=== PATIENT | male | born 1980 | race Caucasian/White ===

== ENCOUNTER → 2016-11-07 | Outpatient (CLI) | payer OTHER ==
[2016-11-07 13:56] LABS: HEMOGLOBIN 14.4 gm/dl (14.0-17.5); RED BLOOD COUNT 4.48 M/UL (4.20-5.50)
[2016-11-07 14:08] LABS: BUN/CREATININE RATIO 26 (0-10)
== END ==
LOC: LAB 12:26
PROVIDERS: Internal Medicine Gastroenterology
DX: B18.2 Chronic viral hepatitis C (principal)
CPT/HCPCS: 36415; 80053; 80074; 80307; 82103; 82105; 82172; 82247; 82390; 82728; 82977; 83010; 83540; 83550; 83883; 84460; 85027; 85610; 86039; 86235; 86255; 86706; 87390; 87521; G0480

== ENCOUNTER 2020-09-17 23:04 | Emergency (ER) | payer OTHER ==
[2020-09-17 23:39] LABS: HEMOGLOBIN 14.1 gm/dl (14.0-17.5); RED BLOOD COUNT 4.34 M/UL (4.20-5.50)
[2020-09-17 23:57] LABS: BUN/CREATININE RATIO 29 (0-10)
[2020-09-18] MEDS ORDERED: IBUPROFEN800 MG PO (01:36)
[2020-09-18] MEDS ORDERED: PROTONIX40 MG PO (01:36)
== END 2020-09-18 01:45 | disposition home or self-care (01) ==
LOC: ER1 23:04
PROVIDERS: Preventive Medicine Occupational Medicine
DX: R07.89 Other chest pain (principal); R11.2 Nausea with vomiting, unspecified
CPT/HCPCS: 71045; 80053; 81001; 82550; 82553; 83690; 83874; 84484; 85025; 85379; 85652; 86140; 87086; 93005; 99285